=== PATIENT | male | born 1945 | race Caucasian/White ===

== ENCOUNTER 2019-01-07 13:46 | Observation (INO) | payer OTHER ==
[~2019-01-07] VITALS: Ht 170.2 cm; Wt 79.4 kg
[~2019-01-07 13:46] MED LIST: LISI5 PO; METF500 PO; TRAM50 PO
[2019-01-07 14:26] LABS: Hematocrit 47.2 % (37.0-53.0); Hemoglobin 15.7 g/dL (13.5-17.5); Mean Corpuscular HGB 30.4 pg (26.0-34.0); Mean Corpuscular HGB Conc 33.3 g/dL (31.5-36.5); Mean Corpuscular Volume 92 fL (80-100); Mean Platelet Volume 9.1 fL (9.1-12.4); Platelet Count 267 K/mm3 (150-400); RDW Coefficient Variation 14.3 % (11.7-14.2); RDW Standard Deviation 48.3 fL (35.1-46.3); Red Blood Cell Count 5.16 M/mm3 (4.30-5.90); White Blood Cell Count 7.84 K/mm3 (4.00-11.30)
[2019-01-07 14:40] LABS: Anion Gap 5 mmol/L (6-16); Blood Urea Nitrogen 13 mg/dL (8-24); CO2, Blood 28 mmol/L (21-32); Calcium, Blood 9.1 mg/dL (8.5-10.1); Chloride, Blood 104 mmol/L (98-108); Glomerular Filtration Rate >60 (60-); Glucose, Blood 122 mg/dL (70-99); Sodium, Blood 137 mmol/L (136-145)
[2019-01-08 03:44] LABS: BASOPHILS ABSOLUTE AUTO 0.01 K/mm3 (0.00-0.23); BASOPHILS PERCENT AUTO 0 % (0-2); EOSINOPHILS PERCENT AUTO 0 % (0-6); Hematocrit 45.7 % (37.0-53.0); Hemoglobin 15.1 g/dL (13.5-17.5); IMMATURE GRAN ABSOLUTE AUTO 0.03 K/mm3 (0.00-0.10); IMMATURE GRAN PERCENT AUTO 0 % (0-1); LYMPHOCYTES ABSOLUTE AUTO 0.69 K/mm3 (0.84-5.20); LYMPHOCYTES PERCENT AUTO 7 % (21-46); MONOCYTES ABSOLUTE AUTO 0.64 K/mm3 (0.16-1.47); MONOCYTES PERCENT AUTO 6 % (4-13); Mean Corpuscular HGB 30.5 pg (26.0-34.0); Mean Corpuscular Volume 92 fL (80-100); Mean Platelet Volume 8.9 fL (9.1-12.4); NEUTROPHILS ABSOLUTE AUTO 8.84 K/mm3 (1.96-9.15); NEUTROPHILS PERCENT AUTO 87 % (41-73); Platelet Count 250 K/mm3 (150-400); RDW Coefficient Variation 14.3 % (11.7-14.2); RDW Standard Deviation 48.7 fL (35.1-46.3); Red Blood Cell Count 4.95 M/mm3 (4.30-5.90); White Blood Cell Count 10.21 K/mm3 (4.00-11.30)
[2019-01-08 04:04] LABS: Anion Gap 9 mmol/L (6-16); Blood Urea Nitrogen 14 mg/dL (8-24); Bun/Creatinine Ratio 14.9 (12.0-20.0); CO2, Blood 24 mmol/L (21-32); Calcium, Blood 8.9 mg/dL (8.5-10.1); Chloride, Blood 105 mmol/L (98-108); Creatinine, Blood 0.94 mg/dL (0.60-1.20); Glomerular Filtration Rate >60 (60-); Glucose, Blood 128 mg/dL (70-99); Sodium, Blood 138 mmol/L (136-145)
--- NOTE | 2019-01-08 05:54 | NUR ---
GONE TO RADIOLOGY VIA WHEELCHAIR FOR SCHEDULED CHEST XRAY.
--- NOTE | 2019-01-08 06:03 | NUR ---
RETURNED TO ROOM VIA WHEELCHAIR.
--- NOTE | 2019-01-08 06:52 | NUR ---
SHIFT SUMMARY RESTED WELL, ABLE TO REPOSITION SELF IN BED. REFUSES MEDS FOR PAIN OR DISCOMFORT AT THIS TIME. DENIES FURTHER NEEDS AT THIS TIME. SAFETY MEASURES IN PLACE. WILL CONTINUE TO MONITOR.
--- NOTE | 2019-01-08 15:25 | NUR ---
DISCHARGE PT INSTRUCTED ON IS, STATES IS FAMILIAR WITH IT. NEW IS GIVEN. PT STATES UNDERSTANDING OF REASONS TO SEEK MEDICAL ATTENTION.
== END 2019-01-08 15:27 | disposition home or self-care (01) ==
LOC: ER 13:46 → SURS 13:47 → ER 15:31 → SURS 15:31
PROVIDERS: Emergency Medicine; ADMIT Surgery
DX: S22.41XA Multiple fractures of ribs, right side, initial encounter for closed fracture (principal); S00.81XA Abrasion of other part of head, initial encounter; I10 Essential (primary) hypertension; V29.9XXA Motorcycle rider (driver) (passenger) injured in unspecified traffic accident, initial encounter
CPT/HCPCS: 12011; 36415; 70450; 70486; 71045; 71046; 71260; 72125; 74177; 80048; 85025; 85027; 96361; 96374; 96375; 96376; 99285-25; G0378; J0360; J1885; J2405; J7120; Q9967

== ENCOUNTER 2025-04-28 07:48 | Inpatient (IN) | payer OTHER ==
[~2025-04-28] VITALS: Ht 167.6 cm; Wt 70.5 kg
[~2025-04-28 07:48] MED LIST changes: +LEVE500 PO
[2025-04-28] MEDS ORDERED: Metoprolol Tartrate 1 MG/ML 5 ML VIAL IV PRN (08:30)
[2025-04-28 08:47] LABS: BASOPHILS ABSOLUTE AUTO 0.02 K/mm3 (0.00-0.23); BASOPHILS PERCENT AUTO 0 % (0-2); EOSINOPHILS ABSOLUTE AUTO 0.00 K/mm3 (0.00-0.68); EOSINOPHILS PERCENT AUTO 0 % (0-6); Hematocrit 36.8 % (37.0-53.0); Hemoglobin 12.4 g/dL (13.5-17.5); IMMATURE GRAN ABSOLUTE AUTO 0.03 K/mm3 (0.00-0.10); IMMATURE GRAN PERCENT AUTO 0 % (0-1); LYMPHOCYTES ABSOLUTE AUTO 1.12 K/mm3 (0.84-5.20); LYMPHOCYTES PERCENT AUTO 13 % (21-46); MONOCYTES ABSOLUTE AUTO 0.59 K/mm3 (0.16-1.47); MONOCYTES PERCENT AUTO 7 % (4-13); Mean Corpuscular HGB Conc 33.7 g/dL (31.5-36.5); Mean Corpuscular Volume 89 fL (80-100); NEUTROPHILS ABSOLUTE AUTO 6.65 K/mm3 (1.96-9.15); NEUTROPHILS PERCENT AUTO 79 % (41-73); NRBC ABSOLUTE 0.00 K/mm3 (0.00-0.02); NRBC Auto 0.0 /100 WBC (0.0-0.2); Platelet Count 314 K/mm3 (150-400); RDW Coefficient Variation 16.6 % (11.7-14.2); RDW Standard Deviation 54.1 fL (35.1-46.3)
[2025-04-28 08:59] LABS: Alanine Aminotransfer (ALT/SGP 24.0 U/L (12-78); Albumin, Blood 2.4 g/dL (3.4-5.0); Albumin/Globulin Ratio 0.7 (0.8-1.8); Anion Gap 8.0 mmol/L (3-11); Aspartate Aminotrans (AST/SGOT 58.0 U/L (12-37); Bilirubin, Direct 0.2 mg/dL (0.0-0.3); Bilirubin, Indirect 1.0 mg/dL (0.1-0.7); Bilirubin, Total 1.2 mg/dL (0.1-1.0); Blood Urea Nitrogen 35.0 mg/dL (8-24); CO2, Blood 32.0 mmol/L (21-32); Chloride, Blood 96.0 mmol/L (98-108); Creatinine, Blood 1.09 mg/dL (0.60-1.20); Globulin, Blood 3.4 g/dL (2.2-4.0); Glucose, Blood 135.0 mg/dL (70-99); Potassium, Blood 4.2 mmol/L (3.5-5.5); Sodium, Blood 132.0 mmol/L (136-145); Total Protein, Blood 5.8 g/dL (6.4-8.2)
[2025-04-28 09:09] LABS: Calcium, Blood 14.9 mg/dL (8.5-10.1)
[2025-04-28] MEDS ORDERED: FLU VACC TS2025(65UP)/MF59C/PF 45 MCG/0.5 ML SYRINGE IM SCH (12:10)
[2025-04-28] MEDS ORDERED: Calcitonin Salmon 200 IU/ML 2ML Vial SC ONE (12:15)
[2025-04-28] MEDS ORDERED: NS 1,000 ML IV SCH (13:00)
[2025-04-28 14:54] VITALS: BP 120/75
[2025-04-28] MEDS ORDERED: Insulin Regular 100 UNIT/ML 10ML Vial SC SCH (16:30)
[2025-04-28] MEDS ORDERED: Darbepoetin (Pharmacy Consult) SC SCH ×2 (17:00→20:40)
--- NOTE | 2025-04-28 19:31 | NUR ---
SHIFT SUMMARY PATIENT TRANSFERRED FROM ED AT 1430. PATIENT ALERT AND ORIENTED X 4. IS AT BEDSIDE. ORIENTED PATIENT AND IN THE ROOM. MAKES NEEDS KNOWN. PATIENT PLEASANT AND COOPERATIVE DURING CARE. PATIENT SELF REPOSITIONED THROUGHOUT THE SHIFT. PATIENT RETAINED 1100 MLS OF URINE, RAO IN PLACE. ADMINISTERED MEDICATIONS PER EMAR.. BED LOCKED AND IN LOWEST POSITION. CALL LIGHT WITHIN REACH.
[2025-04-28 20:03] VITALS: BP 80/68
[2025-04-28 20:14] VITALS: BP 120/69
[2025-04-28 23:53] VITALS: BP 100/69
[2025-04-29] VITALS (24 sets, daily range): BP systolic 69–149; BP diastolic 50–105
--- NOTE | 2025-04-29 05:06 | NUR ---
SHIFT SUMMARY PATIENT IS ALERT AND ORIENTED X2-3. PATIENT HAS HAD NO ACUTE EVENTS THIS SHIFT. VITAL SIGNS REVIEWED. PATIENT HAS NO COMPLAINTS OF PAIN, NAUSEA, SOB OR VOMITTING THIS SHIFT. RAO IN LOCKED AND LOWEST POSITION. PATIENT HAS BEEN REPOSITIONING SELF IN BED. POSSIBLE FALL RISK AND BED ALARM IS ON. PATIENTS HAS BEEN AT BEDSIDE ALL SHIFT AND HAS HELPED WITH CARE. PATIENT HAS RAO AND IS DRAINING NORMA URINE TO GRAVITY. BED IN LOCKED AND LOWEST POSITION. CALL LIGHT IN PLACE.
[2025-04-29 05:11] LABS: Hematocrit 40.2 % (37.0-53.0); Hemoglobin 13.2 g/dL (13.5-17.5)
[2025-04-29 05:40] LABS: Magnesium, Blood 2.4 mg/dL (1.6-2.4); Prostate Specific Antigen 0.845 ng/mL (0.000-4.000); Thyroid Stimulating Hormone 2.600 uIU/mL (0.360-4.800); Uric Acid, Blood 6.8 mg/dL (3.5-7.2)
[2025-04-29 06:07] LABS: Alanine Aminotransfer (ALT/SGP 34 U/L (12-78); Albumin, Blood 2.5 g/dL (3.4-5.0); Albumin/Globulin Ratio 0.8 (0.8-1.8); Anion Gap 8 mmol/L (3-11); Aspartate Aminotrans (AST/SGOT 95 U/L (12-37); Bilirubin, Total 0.8 mg/dL (0.1-1.0); Blood Urea Nitrogen 39 mg/dL (8-24); CO2, Blood 27 mmol/L (21-32); Calcium, Blood 14.3 mg/dL (8.5-10.1); Chloride, Blood 100 mmol/L (98-108); Creatinine, Blood 1.20 mg/dL (0.60-1.20); Globulin, Blood 3.3 g/dL (2.2-4.0); Glucose, Blood 77 mg/dL (70-99); Phosphorus, Blood 4.2 mg/dL (2.5-4.9); Potassium, Blood 3.3 mmol/L (3.5-5.5); Sodium, Blood 132 mmol/L (136-145); Total Protein, Blood 5.8 g/dL (6.4-8.2)
[2025-04-29 06:35] LABS: Source, Urine Clean Catch
[2025-04-29 06:40] LABS: Bilirubin, Urine Neg (Neg); Glucose Qualitative, Urine Neg (Neg); Ketones, Urine Neg (Neg); Leukocyte Esterase, Urine Neg (Neg); Protein, Urine Neg (Neg); Specific Gravity, Urine 1.010 (1.003-1.022); Urobilinogen, Urine NORM (Normal)
[2025-04-29 06:50] LABS: Color, Urine Pale Yellow (P-Yellow); Red Blood Cells, Urine 0-2 /hpf (0-2); White Blood Cells, Urine 0-2 /hpf (0-5)
[2025-04-29] MEDS ORDERED: Calcitonin Salmon 200 IU/ML 2ML Vial IM SCH (09:00)
[2025-04-29] MEDS ORDERED: Enoxaparin 40 MG/0.4 ML SYR SC SCH (09:00)
--- NOTE | 2025-04-29 17:04 | NUR ---
PHYSICIAN CONTACT NOTIFIED DR. MESA THAT NO BM YET TODAY. DR MESA ORDERED FOR A FLEET ENEMA TO BE GIVEN NOW.
--- NOTE | 2025-04-29 18:17 | NUR ---
PHYSICIAN CONTACT-PT MENTATION/ALERTNESS DECLINING T/O SHIFT. DR. MESA NOTIFIED OF OVERALL CONCERN FOR PATIENT HIS ALERTNESS HAS DECLINED AND HE HAS BECAME MORE AND MORE LETHARGIC/WEAK T/O THIS SHIFT. PT STARTED THIS SHIFT TALKING AND ABLE TO TRANSFER TO BSC WITH 1P ASSIST. PT NOW MORE DIFFICULT TO AROUSE AND REFUSED LUNCH & DINNER SO THAT HE CAN SLEEP. PT ENCOURAGED TO DRINK AN ENSURE, BUT WAS ONLY ABLE TO STAY AWAKE LONG ENOUGH TO TAKE A FEW DRINKS. DR. MESA INFORMED THAT PT BLOOD SUGAR WAS ONLY 70 AND THERE IS CONCERN OF IT DROPPING OVERNIGHT WELL WITH THE PT NOT WAKING UP TO EAT. PT WILL RESPOND TO PHYSICAL TOUCH, BUT DOES NOT WELL TO VERBAL STIMULI. DR. MESA ORDERED TO TRANSFER TO PCU PT IS A FULL CODE. START D51/2NS AT 75ML/HR. AND GET AN AMMONIA LEVEL. DR. DAVIS ALSO CALLED DIRECTLY AFTER THIS. WAS UPDATED ON PT CONDITION AND ORDERED TO CHANGE THE FLUIDS TO D5NS AT 75ML/HR. CHEMICAL TREATMENT OPERATOR NOTIFIED OF NEED FOR PCU BED.
[2025-04-29] MEDS ORDERED: D5W-NS 1,000 ML IV SCH (18:20)
--- NOTE | 2025-04-29 18:57 | NUR ---
SHIFT SUMMARY SEE PREVIOUS NOTE ABOUT TRANSFER TO PCU. PT HAS SOFT BP T/O SHIFT. DR. MESA NOTIFIED THIS AM. MANUAL BP OBTAINED THIS EVEINGIN OF 82/54. TELE REPORTS AFIB AT 101 CURRENTLY. PT PLACED ON 2L O2 VIA NC DUE TO POOR READING OF O2 AT 88%. HANDS ARE COLD AND MAY BE PART OF THE POOR READING. SATING IMPROVED TO THE HIGH 90S ON 2L O2. PT MUMBLING THIS AFTERNOON. UNABLE TO UNDERSTAND HIS WORDS, PT SPOKE CLEARLY THIS AM. AMMONIA LAB DRAWN FROM LAB. PT HAS BEEN TRYING TO HAVE A BM SINCE THE START OF SHIFT. LACTULOSE, SUPPOSITORY, AND FLEET ENEMA GIVEN ORDERED PER DR. MESA TO HELP WITH THIS. NO MAJOR BM YET THIS SHIFT. PT NOW BEDREST AT THIS TIME DUE TO WEAKNESS AND RESTLESSNESS. , ARACELI AT BEDSIDE. AWARE OF PLAN TO TRANSFER TO PCU. AWAITING BED AT THIS TIME.
[2025-04-29 20:22] LABS: KEPPRA (LEVETIRACETAM) 23.5 ug/mL (10.0-40.0)
[2025-04-30] VITALS (19 sets, daily range): BP systolic 71–120; BP diastolic 51–94
[2025-04-30 04:21] LABS: Hematocrit 33.7 % (37.0-53.0); Hemoglobin 11.1 g/dL (13.5-17.5)
[2025-04-30 04:42] LABS: Magnesium, Blood 2.1 mg/dL (1.6-2.4)
[2025-04-30 04:51] LABS: Albumin, Blood 2.1 g/dL (3.4-5.0); Anion Gap 6 mmol/L (3-11); Blood Urea Nitrogen 33 mg/dL (8-24); CO2, Blood 33 mmol/L (21-32); Calcium, Blood 11.1 mg/dL (8.5-10.1); Chloride, Blood 101 mmol/L (98-108); Creatinine, Blood 0.97 mg/dL (0.60-1.20); Glucose, Blood 81 mg/dL (70-99); Phosphorus, Blood 2.0 mg/dL (2.5-4.9); Potassium, Blood 2.7 mmol/L (3.5-5.5); Sodium, Blood 137 mmol/L (136-145)
[2025-04-30] MEDS ORDERED: D5W NS IV ONE (05:50)
[2025-04-30] MEDS ORDERED: Glucagon 1 MG/KIT VIAL IV ONE (05:55)
[2025-04-30 07:24] LABS: Protein, Urine Quantitative 19.7 mg/dL (0.0-11.9)
--- NOTE | 2025-04-30 07:42 | NUR ---
SHIFT SUMMARY: PT TRANSFERS TO PCU 9 FROM MEDICAL FLOOR AROUND 2009 VIA HOSPITAL BED. AT BEDSIDE, ATTENTIVE TO PT T/O THIS SHIFT. PT IS LETHARGIC, OPENS EYES TO PHYSICAL STIMULI. ORIENTED TO HIMSELF ONLY, MOSTLY NONSENSICAL MUMBLING. HYPOTENSIVE 80'S/50'S, MAP <65, ON RA, SATS >95%.IRREGULAR HR 130'S-140'S, OCCATIONALLY HIT 150'S FREQUENT PVC'S, 6 SEPERATE RUNS OF VTACH THIS SHIFT. AM LABS, K 2.7, REPLACING WITH 40 mEq IV. D5NS INFUSING AT 100HR, BG REMAINS STABLE IN THE 80'S. REPEAT LABS ORDERED PER DR DAVIS. ON A REGULAR DIET, BUT KEPT PT NPO D/T DECREASED MENTATION. PT RESTLESS, NOT OOB THIS SHIFT, REPOSITIONING TOLERATED. RAO CATHETER DRAINING LARGE AMOUNTS OF CLEAR, PALE YELLOW URINE TO GRAVITY, STAT LOCK IN PLACE. 24 HOUR URINE COLLECTED AT 0630. MULTIPLE, SMALL, INCONTINENT LIQUID BM'S THIS SHIFT, BRIEF IN PLACE. BED IN LOWEST POSITION, CALL LIGHT WITHIN REACH. BED ALARM SET FOR PT'S SAFETY.
[2025-04-30] MEDS ORDERED: Magnesium Citrate 300 ML BTL PO ONE (08:55)
[2025-04-30] MEDS ORDERED: FentaNYL Citrate 50 MCG/ML 2 ML Injection IV PRN (09:40)
[2025-04-30] MEDS ORDERED: Potassium Phosphate Dibasic 10 MM in Dextrose 5% 250 ML IV ONE (09:45)
[2025-04-30] MEDS ORDERED: D5W-NS 1,000 ML IV SCH (10:20)
[2025-04-30 14:45] LABS: Phosphorus, Blood 1.7 mg/dL (2.5-4.9); Potassium, Blood 2.9 mmol/L (3.5-5.5)
[2025-04-30] MEDS ORDERED: Amiodarone HCl 450 MG in NS 250 ML IV SCH (15:00)
[2025-04-30] MEDS ORDERED: Potassium Phosphate Dibasic 25 MM in Dextrose 5% 500 ML IV ONE (15:40)
[2025-04-30] MEDS ORDERED: Amiodarone HCl 150 MG in NS 100 ML IV ONE (16:40)
[2025-04-30] MEDS ORDERED: Thiamine HCl 300 MG in NS 100 ML IV SCH (18:00)
--- NOTE | 2025-04-30 18:16 | NUR ---
PT IS A&Ox2, HE DOES NOT USE THE CALL LIGHT AND HE MUMBLES WHEN HE SPEAKS. HE IS ON RA W/O2 SATS > 92%. HE IS IMPULSIVE AND TRIES TO CLIMB OUT OF THE BED FREQUENTLY, SO HE HAS A 1:1 SITTER. NO NEEDS @ THIS TIME. HIS HR CONTINUES TO BE ELEVATED AND HIS BP CONTINUES TO BE LOW. DR. OLIVO IS AWARE AND HE IS ON AN AMIO GTT PER EMAR. HE ALSO HAS D5NS, KPHOS, AND POT CHLORIDE RUNNING PER EMAR. BE IN LOW POSITION AND CALL LIGHT IN REACH.
[2025-04-30] MEDS ORDERED: Magnesium Citrate 300 ML BTL PO PRN (19:30)
[2025-04-30] MEDS ORDERED: Potassium Chl 10MEQ/Water100ML 100 ML IV ONE (21:00)
[2025-04-30 23:27] LABS: Phosphorus, Blood 2.3 mg/dL (2.5-4.9); Potassium, Blood 3.5 mmol/L (3.5-5.5)
[2025-05-01] VITALS (14 sets, daily range): BP systolic 76–106; BP diastolic 64–86
[2025-05-01] MEDS ORDERED: Potassium Phosphate Dibasic 20 MM in Dextrose 5% 500 ML IV ONE (00:05)
[2025-05-01] MEDS ORDERED: NS 250 ML IV ONE (02:40)
[2025-05-01 04:08] LABS: Hematocrit 32.0 % (37.0-53.0); Hemoglobin 10.3 g/dL (13.5-17.5)
[2025-05-01 05:08] LABS: Magnesium, Blood 1.6 mg/dL (1.6-2.4)
[2025-05-01 05:38] LABS: Albumin, Blood 2.0 g/dL (3.4-5.0); Anion Gap 8 mmol/L (3-11); Blood Urea Nitrogen 27 mg/dL (8-24); CO2, Blood 28 mmol/L (21-32); Calcium, Blood 8.6 mg/dL (8.5-10.1); Chloride, Blood 108 mmol/L (98-108); Creatinine, Blood 0.74 mg/dL (0.60-1.20); Glucose, Blood 208 mg/dL (70-99); Phosphorus, Blood 2.5 mg/dL (2.5-4.9); Potassium, Blood 3.5 mmol/L (3.5-5.5); Sodium, Blood 140 mmol/L (136-145)
[2025-05-01] MEDS ORDERED: Potassium Phosphate Dibasic 10 MM in Dextrose 5% 250 ML IV ONE (06:00)
--- NOTE | 2025-05-01 07:36 | NUR ---
SHIFT SUMMARY: PT IS ORIENTED TO HIMSELF ONLY, MOSTLY NONSENSICAL MUMBLING. HIS MENTATION WAXES AND WANES, HE WAS MORE ALERT THIS SHIFT AND WAS ABLE TO FOLLOW SOME COMMANDS. HE ALSO DRANK SOME WATER THIS SHIFT. HYPOTENSIVE 70'S/50'S, MAP >65, ON RA, SATS>95%. IRREGULAR HR 100'S-130'S WITH FREQUENT PAC'S AND PVC'S. FREQUENTLY C/O PAIN EVERYWHERE, MEDICATED WITH TYLENOL SUPPOSITORY. D5NS INFUSING AT 75HR, BG REMAINS STABLE. REPLACING K AND PHOS T/O THIS SHIFT PER DR DAVIS. PT RESTLESS, NOT OOB THIS SHIFT, REPOSITIONING TOLERATED. SHANNON HAD A REPEAT HEAD CT EARLY THIS MORNING. RAO CATHETER DRAINING ADEQUATE AMOUNTS OF CLEAR, CONCENTRATED URINE TO GRAVITY, STAT LOCK IN PLACE. MULTIPLE, SMALL, INCONTINENT LIQUID BM'S THIS SHIFT, BRIEF IN PLACE. BED IN LOWEST POSITION, CALL LIGHT WITHIN REACH. 1:1 SITTER AT BEDSIDE.
[2025-05-01] MEDS ORDERED: CUSO4 P HYD IV SCH (08:50)
[2025-05-01] MEDS ORDERED: SODIUM CHLORIDE IV SCH (08:50)
[2025-05-01] MEDS ORDERED: [UNRECOGNIZED DRUG - OTHER] IV SCH (08:50)
[2025-05-01] MEDS ORDERED: ZINC SULF IV SCH (08:50)
--- NOTE | 2025-05-01 12:00 | NUR ---
MORNING SUMMARY THE PT IS ALERT AND ORIENTED TO SELF AND PERSON. ON TELE HE IS MAT 100'S-110'S. BP HAS BEEN LABILE, MAP >65. THE PT HAS BEEN ON RA AND DENIES ANY SOB. HIS RESP RATE IS IN THE 20'S. THE PT HAS BEEN C/O ABD PAIN. MEDICATIONS GIVEN PER EMAR. THE PT HAS BEEN HAVING MULTIPLE LOOSE BOWEL MOVEMENTS T/O THE MORNING. COMPACTION NOTED AROUND RECTUM WHEN GIVEN SUPPOSITORIES. HE HAS A RAO DRAINING TO GRAVITY. THE PT WAS ABLE TO DRINK SOME WATER THIS SHIFT VIA SPOON. WHEN TRYING TO EAT SCARMBLED EGGS THE PT WAS NOT SWALLOWING THE FOOD AN DHELD IT IN HIS MOUTH. THIS WAS DISCUSSED WITH DR. LAMB. PLAN FOR ST IF THE PT BECOMES MORE ALERT. AT THIS TIME THE PT IS STILL UNABLE TO TAKE PO MEDICATIONS. THE PT REMAINS ON AN AMIO GTT, AND DR. OLIVO WOULD LIKE IT TO CONTINUE AT THE HALF RATE UNTIL FURTHER NOTICE. THE D5%NS WAS D/C'D AND CLINIMIX WAS STARTED PER DR. DAVIS AND DIETITION. HIS HAS BEEN AT BEDSIDE AND UPDATED ON CARE. 1:1 SITTER REMAINS IN THE ROOM. SEE NOTES FOR UPDATES.
[2025-05-01] MEDS ORDERED: FentaNYL Citrate 50 MCG/ML 2 ML Injection IV PRN (13:15)
[2025-05-01] MEDS ORDERED: Amiodarone HCl 150 MG in NS 100 ML IV ONE (15:25)
[2025-05-01 16:52] LABS: VITAMIN D,1,25-DIHYDROXY 10.3 pg/mL (19.9-79.3)
[2025-05-01] MEDS ORDERED: Amiodarone HCl 450 MG in NS 250 ML IV SCH (18:00)
[2025-05-01 18:09] LABS: pH Blood Venous 7.22 (7.34-7.37)
--- NOTE | 2025-05-01 18:44 | NUR ---
END OF SHIFT SUMMARY THE PT IS STILL ALERT X2, HAS BECOME MORE AGGITATED AND RESTLESS. HIS HEART RATE HAS CONTINUED TO INCREASE MAT 110'S-150'S AND HIS BP CONTINUES TO BE LABILE. DR. OLIVO ROUNDED ON THE PT THIS AFTERNOON AND ORDERED A BOLUS OF AMIO. ABOUT AN HOUR AFTER THE BOLUS DR. OLIVO CAME AND SAW THE PT AGAIN. WITHOUT CHANGE TO THE PT'S HEART RATE DR. OLIVO REORDERED THE AMIO GTT TO BE INFUSING AT 33.3ML/HR FOR A TOTAL OF 12 HRS THE DECREASE TO THE HALF RATE UNTIL FURTHER NOTICE. SEE CRITICAL FLOW SHEET FOR TIMES. THE PT'S RESP RATE HAS BEEN 20'S-30'S AND TH EPT DEVELOPED SOME MUSCLE TWITCHING. THIS RN CALLED DR. LAMB WITH THE CHANGES. CHEST XR CMP AND VBG ORDERED. CRITICAL PH OF 7.[address] LAMB WHO TOLD THIS RN TO CALL DR. DAVIS AND DR. LAMB ORDERED ABD CT W/ CONTRAST. DR DAVIS NOTIFIED AND HE ORDERED A STAT RENAL PANEL AND WANTS TO BE NOTIFIED SOON THE RESULTS COME IN. ABD PAIN HAS CONTINUED TO INCREASE. DR. ABERNATHY WAS CALLED THIS EARLY AFTERNOON AND WILL SEE THE PT 05/02. THE PT IS CURRENTLY AT CT AND THE RENAL PANEL IS RUNNING IN THE LAB. THE PT'S CALLED AND WAS UPDATED ON REGRESSION IN CARE. SEE NOTES FOR UPDATES.
[2025-05-01 20:36] LABS: Alanine Aminotransfer (ALT/SGP 120 U/L (12-78); Albumin, Blood 2.1 g/dL (3.4-5.0); Albumin/Globulin Ratio 0.7 (0.8-1.8); Anion Gap 9 mmol/L (3-11); Aspartate Aminotrans (AST/SGOT 191 U/L (12-37); Bilirubin, Total 1.3 mg/dL (0.1-1.0); Blood Urea Nitrogen 27 mg/dL (8-24); CO2, Blood 24 mmol/L (21-32); Calcium, Blood 8.5 mg/dL (8.5-10.1); Chloride, Blood 108 mmol/L (98-108); Creatinine, Blood 0.72 mg/dL (0.60-1.20); Globulin, Blood 3.1 g/dL (2.2-4.0); Glucose, Blood 144 mg/dL (70-99); Phosphorus, Blood 2.1 mg/dL (2.5-4.9); Potassium, Blood 3.7 mmol/L (3.5-5.5); Sodium, Blood 137 mmol/L (136-145); Total Protein, Blood 5.2 g/dL (6.4-8.2)
[2025-05-01 20:44] LABS: BASOPHILS ABSOLUTE AUTO 0.04 K/mm3 (0.00-0.23); BASOPHILS PERCENT AUTO 0 % (0-2); EOSINOPHILS ABSOLUTE AUTO 0.04 K/mm3 (0.00-0.68); EOSINOPHILS PERCENT AUTO 0 % (0-6); Hematocrit 32.6 % (37.0-53.0); Hemoglobin 10.6 g/dL (13.5-17.5); IMMATURE GRAN ABSOLUTE AUTO 0.05 K/mm3 (0.00-0.10); IMMATURE GRAN PERCENT AUTO 1 % (0-1); LYMPHOCYTES ABSOLUTE AUTO 1.22 K/mm3 (0.84-5.20); LYMPHOCYTES PERCENT AUTO 13 % (21-46); MONOCYTES ABSOLUTE AUTO 0.58 K/mm3 (0.16-1.47); MONOCYTES PERCENT AUTO 6 % (4-13); Mean Corpuscular HGB Conc 32.5 g/dL (31.5-36.5); Mean Corpuscular Volume 89 fL (80-100); NEUTROPHILS ABSOLUTE AUTO 7.69 K/mm3 (1.96-9.15); NEUTROPHILS PERCENT AUTO 80 % (41-73); NRBC ABSOLUTE 0.00 K/mm3 (0.00-0.02); NRBC Auto 0.0 /100 WBC (0.0-0.2); Platelet Count 233 K/mm3 (150-400); RDW Coefficient Variation 16.4 % (11.7-14.2); RDW Standard Deviation 53.1 fL (35.1-46.3)
[2025-05-01 20:48] LABS: pH Blood Venous 7.42 (7.34-7.37)
[2025-05-01] MEDS ORDERED: Sodium Phosphate 20 MM in Dextrose 5% 500 ML IV ONE (21:15)
[2025-05-02] VITALS (51 sets, daily range): BP systolic 60–184; BP diastolic 30–170
[2025-05-02 03:51] LABS: Hematocrit 35.0 % (37.0-53.0); Hemoglobin 10.9 g/dL (13.5-17.5); Mean Corpuscular HGB Conc 31.1 g/dL (31.5-36.5); NRBC ABSOLUTE 0.03 K/mm3 (0.00-0.02); NRBC Auto 0.3 /100 WBC (0.0-0.2); Platelet Count 250 K/mm3 (150-400); RDW Coefficient Variation 16.5 % (11.7-14.2); RDW Standard Deviation 56.0 fL (35.1-46.3)
[2025-05-02 03:57] LABS: Mean Corpuscular Volume 94 fL (80-100)
[2025-05-02 04:15] LABS: Albumin, Blood 2.1 g/dL (3.4-5.0); Anion Gap 19 mmol/L (3-11); Blood Urea Nitrogen 30 mg/dL (8-24); CO2, Blood 17 mmol/L (21-32); Calcium, Blood 8.3 mg/dL (8.5-10.1); Chloride, Blood 106 mmol/L (98-108); Creatinine, Blood 1.00 mg/dL (0.60-1.20); Glucose, Blood 142 mg/dL (70-99); Phosphorus, Blood 5.0 mg/dL (2.5-4.9); Potassium, Blood 4.6 mmol/L (3.5-5.5); Sodium, Blood 137 mmol/L (136-145)
[2025-05-02 04:32] LABS: BAND PERCENT MAN 6 % (0-8); BASOPHILS ABSOLUTE MAN 0.00 K/mm3 (0.00-0.23); BASOPHILS PERCENT MAN 0 % (0-2); EOSINOPHILS ABSOLUTE MAN 0.00 K/mm3 (0.00-0.68); EOSINOPHILS PERCENT MAN 0 % (0-6); LYMPHOCYTES ABSOLUTE MAN 0.11 K/mm3 (0.84-5.20); LYMPHOCYTES PERCENT MAN 1 % (21-46); MONOCYTES ABSOLUTE MAN 0.59 K/mm3 (0.16-1.47); MONOCYTES PERCENT MAN 5 % (4-13); NEUTROPHILS ABSOLUTE MAN 11.26 K/mm3 (1.96-9.15); SEG NEUTROPHILS PERCENT MAN 88 % (41-73)
[2025-05-02] MEDS ORDERED: Amiodarone HCl 450 MG in NS 250 ML IV SCH (05:01)
--- NOTE | 2025-05-02 07:24 | NUR ---
SHIFT SUMMARY: PT A&O1-2 TO SELF AND OCCASIONALLY TO PLACE. PT ANXIOUS AND RESTLESS T/O NIGHT FREQUENTLY PULLING AT TELE. CONTINUES TO HAVE SOFT BPS. AMIO RUNNING AT 1MG/MIN FOR MOST OF SHIFT AND CHANGED TO .5 MG/MIN THIS AM. SEE EMAR. MAINTAINING >92% ON RA. RECEIVING CLINIMIX @ 75ML/HR. PHOS 2.[address]IFT[address] DAVIS NOTIFIED OF PHOS AND VBG AND ORDERED IV SODIUM PHOS 20MMOL. MEDICATED PER ORDER. DR. DAVIS NOTIFIED OF MORNING LABS. NO ADDITIONAL ORDERS AT THIS TIME. FREQUENT SMALL, LOOSE STOOLS T/O SHIFT. RAO IN PLACE DRAINING TO GRAVITY. PT NEUROLOGIST IN ROOM. BED IS LOW AND LOCKED. BED ALARM ON AND CALL LIGHT WITHIN REACH. CONTINUE WITH CURRENT PLAN OF CARE.
[2025-05-02] MEDS ORDERED: Water 500ML With 1 PKT Castile Soap Enema PR ONE (07:45)
[2025-05-02] MEDS ORDERED: Furosemide 10 MG / ML 2ML Vial IV ONE (08:35)
--- NOTE | 2025-05-02 10:10 | NUR ---
TRANSFER SUMMARY THE PT IS ALERT AND ORIENTED TO SELF AND PERSON. HE IS HALLUCINATING AND SAID THERE IS A "CAT CRAWLING UP THE WALL AND GOING THROUGH THE ROOF". SKIN IS PALE AND MOTTLED IN APPEARANCE. ON TELE HE IS SR 70'S, BP STABLE, AND AMIO GTT INFUSING PER EMAR. HE IS ON RA W/ SP02 >93% ON RA, BUT HIS RESP RATE IS 38. WHEEZES AND CRACKLES NOTED. THE PT IS STILL C/O ABD PAIN. DR. ABERNATHY SAW THE PT AND ORDERED 2X SOAP SHY ENEMAS THEN WILL REEVALUATE THE PTLATER TODAY. DR. OLIVO SAW THE PT AND LASIX WAS DISCUSSED D/T XR RESULTS FROM 05/[address] DAVIS SAW THE PT AND STATED IF HE HAS PO INTAKE AND CAN EAT TO TURN THE CLINIMIX RATE TO 50CC/HR. PT IS NPO AT THIS TIME PENDING ST EVALUATION. THE PT DID COUGH ON SPOON FED JUICE THIS MORNING. DR. LAMB SAW THE PT AND PUT IN TRANSFER ORDERS TO ICU. PT WAS TRANSFERED TO ICU 13 AND REPORT WAS GIVEN TO TSERING Sr RN. RAO REMAINS PATENT AND DRAINING TO GRAVITY. THE PT'S HAS BEEN AT BEDSIDE AND UPDATES ON CARE.
[2025-05-02] MEDS ORDERED: NS 250 ML IV PRN (11:00)
--- NOTE | 2025-05-02 11:25 | NUR ---
ARRIVAL TO ICU: THIS RN ASSUMED CARE OF PT AT APPROX 0940, REPORT FROM TIMOTHY RN. PT ALERT, ORIENTED TO SELF, PERSON, AND PLACE. PT DEMONSTRATES CONFUSION, FREQUENTLY YELLING OUT AND EXPRESSING DESIRE TO GO HOME. PT NOTED TO HAVE MOTTLED BLE, PALE/COOL SKIN. HR 70'S, SINUS RHYTHM ON MONITOR. BP READINGS VERY LABILE DUE TO PT'S CONTINUOUS MOVEMENT. SPO2 >90% ON RA, LS COARSE T/O. AFEBRILE. RAO CATH IN PLACE, PATENT & DRAINING VERY MINIMAL NORMA URINE TO GRAVITY. ATTENDS CHANGED FOLLOWING SOAP SUDS ENEMAS IN PCU, THOUGH NO STOOLS NOTED. PRODUCTION SUPPORT ANALYST AT BEDSIDE TO PLACE PICC LINE. PPN INFUSING VIA PG TO DARLIN MEJIA GTT INFUSING VIA PIV. PT'S , ARACELI, AT THE BEDSIDE. ARACELI IS TEARFUL, STATES SHE IS "NOT READY TO LOSE HIM YET." ARACELI IS MEETING W/ PALLIATIVE CARE RN AT THIS TIME. CALL PLACED TO DR. LAMB REGARDING PT'S AGITATION; ORDER RECEIVED FOR PRECEDEX GTT. WILL PLAN TO INITIATE GTT WHEN PICC LINE IN PLACE.
[2025-05-02 11:59] LABS: ALBUMIN %,URINE 100.0 %; ALPHA-1 %,URINE 0.0 %; ALPHA-2 %,URINE 0.0 %; BETA GLOBULIN %,URINE 0.0 %; GAMMA GLOBULIN %,URINE 0.0 %; HOURS COLLECTED Not Provided hr; PARAPROTEIN %,URINE 0.0 %
[2025-05-02] MEDS ORDERED: Ampicillin Sod/Sulbactam Sod 3 GM in NS 100 ML IV SCH (12:00)
--- NOTE | 2025-05-02 12:27 | NUR ---
CASE CONFERENCE MET WITH PT'S THIS MORNING FOR GOALS OF CARE. THE PATIENT REMAINS CONFUSED, ORIENTED TO SELF. PT'S DECIDED ON CHANGING PT'S CODE STATUS TO DNR. SHE IS TEARFUL THROUGHOUT THE CONVERSATION, STATING HE HAS BEEN SICK SINCE NOVEMBER OF THIS YEAR, BUT REFUSED TO BE SEEN BY ANY HEALTHCARE PROVIDER. IT WASN'T UNTIL HE FELL FROM THE TOILET INTO THE SHOWER THAT HE AGREED TO COME TO THE HOSPITAL. RECEIVED ORDER FOR DNR.
[2025-05-02 13:00] LABS: pH Blood Venous 7.36 (7.34-7.37)
[2025-05-02 13:54] LABS: Albumin, Blood 2.1 g/dL (3.4-5.0); Anion Gap 21 mmol/L (3-11); Blood Urea Nitrogen 36 mg/dL (8-24); CO2, Blood 14 mmol/L (21-32); Calcium, Blood 8.2 mg/dL (8.5-10.1); Chloride, Blood 107 mmol/L (98-108); Creatinine, Blood 1.24 mg/dL (0.60-1.20); Glucose, Blood 119 mg/dL (70-99); Phosphorus, Blood 4.9 mg/dL (2.5-4.9); Potassium, Blood 4.8 mmol/L (3.5-5.5); Sodium, Blood 137 mmol/L (136-145)
[2025-05-02] MEDS ORDERED: [UNRECOGNIZED DRUG - MIXTURE] IV SCH (14:10)
[2025-05-02] MEDS ORDERED: Sodium Bicarb 8.4% Inj 150 MEQ in Dextrose 5% 1,000 ML IV SCH (14:30)
[2025-05-02] MEDS ORDERED: DOBUtamine 250 MG/D5W 250 ML 250 ML IV SCH (15:00)
[2025-05-02] MEDS ORDERED: NS 500 ML IV SCH (15:00)
--- NOTE | 2025-05-02 15:49 | NUR ---
ICU TRANSFER/UPDATE: THIS RN ASSUMED CARE OF PT AT APPROX 0940; PT TRANSFERRED FROM PCU TO ICU-13. PT ALERT, ORIENTED TO SELF, PERSON, AND PLACE INTERMITTENTLY. PHYSICAL HALLUCINATIONS OBSERVED; PT REPORTS THERE ARE "50 PEOPLE IN THE KITCHEN" AND IS OBSERVED TRYING TO PULL A DEVICE OFF HIS FINGER THAT IS NOT PRESENT. PT REPEATEDLY STATES HE WISHES TO "MOVE OUT" TO GO HOME. PT INTERMITTENTLY AGITATED, PRECEDEX GTT USED PRIOR TO VS BECOMING UNSTABLE. HR 60-70'S, SINUS RHYTHM ON MONITOR. BP READINGS VERY LABILE; WITH DOPPLER, BP 60-70/PALP. PT NOTED TO HAVE COLD EXTREMITIES, BLE MOTTLED. DR. LAMB NOTIFIED, ORDER RECEIVED FOR TERRAZZO FINISHER CONSULT. LEVO GTT STARTED PER DR. FRANCO, NOW BRIDGING FROM LEVO GTT TO DOBUTAMINE GTT PER ORDERS. 500ML BOLUS NS ADMINISTERED, BICARB GTT INFUSING AT 50ML/HR. CLINAMIX INFUSING AT 50ML/HR. AMIO GTT INFUSING AT 16.7ML/HR. PICC TO JOSE A, PG TO JACKIE. SPO2 >90% ON RA. AFEBRILE. RAO CATH IN PLACE, 25ML URINE OUTPUT SO FAR THIS SHIFT, VERIFIED RAO PATENCY W/ BLADDER SCANNER. ATTENDS IN PLACE, 1 SMALL BM EARLIER THIS SHIFT. NPO AT THIS TIME PENDING SPEECH THERAPY EVAL, PT NOT APPROPRIATE TO PARTICIPATE IN EVAL AT THIS TIME. PT CHANGED FROM FULL CODE TO DNR STATUS TODAY; PALLIATIVE CARE IN CONTACT W/ PT'S , ARACELI. ARACELI STATES SHE IS DISCUSSING COMFORT CARE/HOSPICE WITH HER DAUGHTERS AT THIS TIME. 1 DAUGHTER LIVES LOCALLY & 1 DAUGHTER LIVES [place]. CARE CONTINUES, 1:1 PATIENT BINDING PRINTER AT BEDSIDE AT THIS TIME FOR SAFETY.
[2025-05-02 15:54] LABS: Hematocrit 32.1 % (37.0-53.0); Hemoglobin 10.1 g/dL (13.5-17.5); Mean Corpuscular HGB Conc 31.5 g/dL (31.5-36.5); Mean Corpuscular Volume 93 fL (80-100); NRBC ABSOLUTE 0.03 K/mm3 (0.00-0.02); NRBC Auto 0.2 /100 WBC (0.0-0.2); Platelet Count 211 K/mm3 (150-400); RDW Coefficient Variation 16.8 % (11.7-14.2); RDW Standard Deviation 57.3 fL (35.1-46.3)
--- NOTE | 2025-05-02 16:00 | NUR ---
UPDATE: THIS RN ASSUMED CARE OF PT AT APPROX 0940; PT TRANSFERRED FROM PCU TO ICU-13. PT REMAINS CONFUSED, DISORIENTED. PHYSICAL HALLUCINATIONS OBSERVED; PT REPORTS THERE ARE "50 PEOPLE IN THE KITCHEN" AND IS OBSERVED TRYING TO PULL A DEVICE OFF HIS FINGER THAT IS NOT PRESENT. PT REPEATEDLY STATES HE WISHES TO "MOVE OUT" TO GO HOME. PT INTERMITTENTLY AGITATED, PRECEDEX GTT USED PRIOR TO VS BECOMING UNSTABLE. HR 60-70'S, SINUS RHYTHM ON MONITOR. BP READINGS VERY LABILE; WITH DOPPLER, BP 60-70/PALP. PT NOTED TO HAVE COLD EXTREMITIES, BLE MOTTLED. DR. LAMB NOTIFIED, ORDER RECEIVED FOR ELECTROLYSIS ENGINEER CONSULT. LEVO GTT STARTED PER DR. FRANCO, NOW BRIDGING FROM LEVO GTT TO DOBUTAMINE GTT PER ORDERS. 500ML BOLUS NS ADMINISTERED, BICARB GTT INFUSING AT 50ML/HR. CLINAMIX REDUCED TO 50ML/HR. AMIO GTT INFUSING AT 16.7ML/HR. PICC TO JOSE A, PG TO JACKIE. SPO2 >90% ON RA. AFEBRILE. RAO CATH IN PLACE, 25ML URINE OUTPUT SO FAR THIS SHIFT, VERIFIED RAO PATENCY W/ BLADDER SCANNER. ATTENDS IN PLACE, 1 SMALL BM EARLIER THIS SHIFT. NPO AT THIS TIME PENDING SPEECH THERAPY EVAL, PT NOT APPROPRIATE TO PARTICIPATE IN EVAL AT THIS TIME. PT CHANGED FROM FULL CODE TO DNR STATUS TODAY; PALLIATIVE CARE IN CONTACT W/ PT'S , ARACELI. ARACELI STATES SHE IS DISCUSSING COMFORT CARE/HOSPICE WITH HER DAUGHTERS AT THIS TIME. 1 DAUGHTER LIVES LOCALLY & 1 DAUGHTER LIVES IN [place]. CARE CONTINUES, 1:1 PATIENT LEASING REPRESENTATIVE AT BEDSIDE AT THIS TIME FOR SAFETY.
[2025-05-02 16:14] LABS: BAND PERCENT MAN 8 % (0-8); BASOPHILS ABSOLUTE MAN 0.00 K/mm3 (0.00-0.23); BASOPHILS PERCENT MAN 0 % (0-2); EOSINOPHILS ABSOLUTE MAN 0.00 K/mm3 (0.00-0.68); EOSINOPHILS PERCENT MAN 0 % (0-6); LYMPHOCYTES ABSOLUTE MAN 0.96 K/mm3 (0.84-5.20); LYMPHOCYTES PERCENT MAN 6 % (21-46); MONOCYTES ABSOLUTE MAN 0.80 K/mm3 (0.16-1.47); MONOCYTES PERCENT MAN 5 % (4-13); NEUTROPHILS ABSOLUTE MAN 14.35 K/mm3 (1.96-9.15); SEG NEUTROPHILS PERCENT MAN 81 % (41-73)
[2025-05-02] MEDS ORDERED: Insulin Regular 100 UNIT/ML 10ML Vial SC SCH (18:00)
--- NOTE | 2025-05-02 19:21 | NUR ---
END OF SHIFT NOTE: SEE PREVIOUS NOTES FOR SHIFT UPDATES. PT TITRATED OFF LEVOPHED GTT THIS EVENING, DOBUTAMINE GTT CONTINUES TO INFUSE; SEE CC FLOWHEET FOR TITRATIONS. BICARB GTT, AMIO GTT, PPN CONTINUE TO INFUSE PER EMAR. PT'S SPOUSE AT BEDSIDE, STATES SHE IS PREPARED TO TRANSITION PT TO COMFORT CARE/HOSPICE TOMORROW UNLESS NECESSARY OVERNIGHT. PT REMAINS CONFUSED W/ HALLUCINATIONS BUT IS COOPERATIVE W/ CARE. 1:1 PT WEBSPHERE PORTAL DEVELOPER AT BEDSIDE FOR SAFETY. CALL LIGHT IN REACH.
--- NOTE | 2025-05-02 21:30 | NUR ---
PT UPDATE: PT REMAINS A&O X 2-3, ACTIVE VISUAL HALLUCINATIONS BUT COOPERATING WITH CARE. CURRENTLY IS ON RA, LUNGS DIM WITH SLIGHT WHEEZING NOTED; PT DENIES SOB. AFIB ON MONITOR WITH FREQUENT PVC'S; HR 80-110, SBP 80-90'S, MAP 65 <, DOBUTAMINE GTT @ 2.5 MCG/KG/MIN. PT DENIES CHEST PAIN. PT IS HAVING FREQUENT, SOFT/FORMED BOWEL MOVEMENTS; REMAINS INCONTINENT AND ATTENDS IN PLACE. PT STARTED TO HAVE COFFEE-GROUND EMESIS. DR. GARVIN NOTIFIED AND ORDERS FOR PROTONIX AND ZOFRAN PLACED. PT HAS RAO IN PLACE, DRAINING TO GRAVITY WITH OLIGURIA NOTED. , ARACELI, AT BEDSIDE. PLANS TO SPEND THE NIGHT.
[2025-05-02] MEDS ORDERED: Ondansetron HCl 2 MG / ML 2ML Vial IV PRN (21:40)
[2025-05-02] MEDS ORDERED: Pantoprazole Sodium 40 MG Injection IV SCH (22:00)
[2025-05-03] VITALS (20 sets, daily range): BP systolic 62–85; BP diastolic 38–62
--- NOTE | 2025-05-03 05:03 | NUR ---
PT UPDATE: PT CONTINUES TO BE HYPOTENSION DESPITE INCREASE IN DOBUTAMINE; GTT AT 12 MCG/KG/MIN. PT AFIB WITH FREQUENT PVC'S, RATE 90-140'S, SBP 60-70'S AND MAPS 50-60. PT'S ARACELI AT BEDSIDE AND FREQUENTLY UPDATED REGARDING INCREASE IN PRESSORS AND CONTINUES HYPOTENSION; DISCUSSED PURSUING COMFORT CARE MEASURES THIS MORNING. DR. DELATORRE CALLED AND NOTIFIED. ORDERS RECIEVED FOR COMFORT CARE, ATIVAN AND MORPHINE AT THIS TIME. ARACELI UPDATED. PT MEDICATED AND ALL DRIPS TURNED OFF @ 0515. AT BEDSIDE WITH THIS RN AND SAND MILL OPERATOR.
[2025-05-03] MEDS ORDERED: Morphine Sulfate 4 MG/1 ML Injection ONE (05:04)
[2025-05-03] MEDS ORDERED: LORazepam 2 MG/ML 1ML Injection IV ONE (05:05)
[2025-05-03] MEDS ORDERED: LORazepam 2 MG/ML 1ML Injection ONE (05:05)
[2025-05-03] MEDS ORDERED: Morphine Sulfate 4 MG/1 ML Injection IV PRN (05:05)
[2025-05-03] MEDS ORDERED: Morphine Sulfate 20 MG/1ML 1 ML Oral Syringe SL PRN (09:20)
[2025-05-03] MEDS ORDERED: Atropine Sulfate 1% Opth Soln 2ML BTL SL PRN (09:20)
--- NOTE | 2025-05-03 14:40 | NUR ---
"Spiritual Care | Comfort Care Visit. Pt. is on comfort care and is not engaged in this visit. Spouse is at bedside and welcomes this paint prepper. The focus of this visit is with the spouse. facilitated a life review and spouse displayed appropriate grief as she verbalized the Pts. terminal prognosis. Considered matters of lin and belief. Prayed for the Pt. and spouse. Spouse verbalized gratitude for the spiritual care visit."
--- NOTE | 2025-05-03 15:54 | NUR ---
DISCUSSED CASE WITH [facility] WHO REQUESTED CC ORDERS. CONFIRMED WITH PROVIDER AND ORDERS PLACED.
[2025-05-03] MEDS ORDERED: LORazepam 2 MG/ML 1ML Injection IV PRN (17:15)
--- NOTE | 2025-05-03 18:46 | NUR ---
SHIFT SUMMARY: PATIENT COMFORT CONTROLLED WITH IV MORPHINE, ROXANOL AND ATIVAN. FAMILY AT BEDSIDE THROUGHOUT THE SHIFT. PATIENT REPOSITIONED THROUGHOUT THE SHIFT. BED BATH PROVIDED. PATIENT HAD MULTIPLE SOFT, FORMED, BROWN BOWEL MOVMENTS. PATIENT HAD DARK BROWN FLUID IN HIS ORAL CAVITY AT TIMES DURING THE SHIFT. ORAL CARE AND SUCTION PROVIDED. SCOPALAMINE PATCH IN PLACE AFTER MULTIPLE USES OF SL ATROPINE. COMFORT CART AT BEDSIDE. PATIENT'S SPOUSE IS APPRECIATIVE OF THE CARE PROVIDED.
[2025-05-03 20:29] LABS: PTHRP BY LC-MS/MS,PLASMA 2.6 pmol/L (0.0-2.3)
--- NOTE | 2025-05-04 06:21 | NUR ---
SHIFT SUMMARY PT UNRESPONSIVE AND BREATHING AGONAL. AIR HUNGER MEDICATED PER EMAR. AT BEDSIDE T/O SHIFT.
--- NOTE | 2025-05-05 13:47 | NUR ---
TONY CAME FOR [facility]1, [place] WAS THE MORTARY TRANSPORT
== END 2025-05-05 04:30 | DRG 640 ==
LOC: ER 07:48 → PCU 12:00 → ERHOLD 12:00 → ICUE 12:00 → MEDS 12:00 → PCU 04-29 20:06 → ICUE 05-02 09:55 → MEDS 05-04 01:22
PROVIDERS: Internal Medicine; Internal Medicine Critical Care Medicine; Internal Medicine Nephrology; Student in an Organized Health Care Education/Training Program; ADMIT Internal Medicine
PROC: 3E02340 Introduction of Influenza Vaccine into Muscle, Percutaneous Approach (ICD-10-PCS; 2025-04-28)
PROC: 02HV33Z Insertion of Infusion Device into Superior Vena Cava, Percutaneous Approach (ICD-10-PCS; principal; 2025-05-02)
PROC: 3E033XZ Introduction of Vasopressor into Peripheral Vein, Percutaneous Approach (ICD-10-PCS; 2025-05-02)
PROC: 3E03329 Introduction of Other Anti-infective into Peripheral Vein, Percutaneous Approach (ICD-10-PCS; 2025-05-02)
PROC: 0T9B70Z Drainage of Bladder with Drainage Device, Via Natural or Artificial Opening (ICD-10-PCS; 2025-05-02)
DX: E83.52 Hypercalcemia (principal); I50.41 Acute combined systolic (congestive) and diastolic (congestive) heart failure; J96.90 Respiratory failure, unspecified, unspecified whether with hypoxia or hypercapnia; E87.1 Hypo-osmolality and hyponatremia; I13.0 Hypertensive heart and chronic kidney disease with heart failure and stage 1 through stage 4 chronic kidney disease, or unspecified chronic kidney disease; N17.9 Acute kidney failure, unspecified; R64 Cachexia; E87.20 Acidosis, unspecified; I25.3 Aneurysm of heart; I23.2 Ventricular septal defect as current complication following acute myocardial infarction; I47.19 Other supraventricular tachycardia; Z66 Do not resuscitate; Z51.5 Encounter for palliative care; K80.50 Calculus of bile duct without cholangitis or cholecystitis without obstruction; I48.91 Unspecified atrial fibrillation; M54.50 Low back pain, unspecified; R57.0 Cardiogenic shock; G89.29 Other chronic pain; K83.8 Other specified diseases of biliary tract; Z96.651 Presence of right artificial knee joint; E86.0 Dehydration; G40.909 Epilepsy, unspecified, not intractable, without status epilepticus; I35.8 Other nonrheumatic aortic valve disorders; E83.39 Other disorders of phosphorus metabolism; R53.81 Other malaise; T17.908A Unspecified foreign body in respiratory tract, part unspecified causing other injury, initial encounter; F12.90 Cannabis use, unspecified, uncomplicated; I95.1 Orthostatic hypotension; K59.00 Constipation, unspecified; E11.22 Type 2 diabetes mellitus with diabetic chronic kidney disease; E86.1 Hypovolemia; T50.2X5A Adverse effect of carbonic-anhydrase inhibitors, benzothiadiazides and other diuretics, initial encounter; N18.2 Chronic kidney disease, stage 2 (mild); D63.1 Anemia in chronic kidney disease; R29.6 Repeated falls; E87.6 Hypokalemia; W44.9XXA Unspecified foreign body entering into or through a natural orifice, initial encounter; Z79.4 Long term (current) use of insulin; Z87.19 Personal history of other diseases of the digestive system; Z90.49 Acquired absence of other specified parts of digestive tract; Z87.891 Personal history of nicotine dependence; Z79.899 Other long term (current) drug therapy; Z68.21 Body mass index [BMI] 21.0-21.9, adult; Z98.890 Other specified postprocedural states
CPT/HCPCS: 36415; 36569; 70450; 71045; 71260; 72125; 74177; 80048; 80053; 80069; 80076; 80177; 81001; 82140; 82306; 82310; 82533; 82542; 82550; 82607; 82652; 82746; 82803; 82947; 83605; 83735; 83880; 83970; 84100; 84132; 84146; 84156; 84166; 84439; 84443; 84484; 84550; 85014; 85018; 85025; 86334; 86335; 93005; 93010; 93308; 93321; 96374-59; 99285-25; A9270; C1751; C8929; G0103; J0282; J0295; J0630; J1250; J1610; J1650; J1815; J1938; J1953; J2060; J2270; J2405; J2470; J3010; J3411; J3470; J3480; J3489; J7040; J7042; J7050; J7060; J7070; J7131; Q9957; Q9967